=== PATIENT | female | born 1940 | race Caucasian/White ===

== ENCOUNTER → 2024-10-14 | Outpatient (REF) | payer MEDICARE ==
[~2024-10-14] MED LIST: ASPIR 8181 MG PO; ATENOLOL100 MG PO; BALSALAZIDE DI750 MG PO; CRESTOR10 MG PO; CRESTOR20 MG PO; FLUOXETINE HCL10 MG PO; LEVOTHYROXINE112 MCG PO; LOSARTAN-HCTZ1 EAC1 PO; OMEPRAZOLE20 MG PO
== END ==
LOC: RAD 12:18
PROVIDERS: ATTEND Internal Medicine Pulmonary Disease
DX: R06.02 Shortness of breath (principal)
CPT/HCPCS: 71046